=== PATIENT | female | born 1985 | race Caucasian/White ===

== ENCOUNTER 2020-12-22 07:03 | Emergency (ER) | payer BC ==
[~2020-12-22] VITALS: Ht 157.5 cm; Wt 62.6 kg
[2020-12-22 07:15] VITALS: BP 118/67
--- NOTE | 2020-12-22 07:18 | NUR ---
Dr. Winter is evaluating patient in triage room.
--- NOTE | 2020-12-22 07:23 | NUR ---
Patient to lobby for next available bed.
--- NOTE | 2020-12-22 07:23 | NUR ---
Patient to restroom to urine sample.
[2020-12-22] MEDS ORDERED: KETOROLAC 60 MG/2 ML VIAL IM ONE (07:25)
[2020-12-22 07:44] LABS: APPEARANCE,URINE CLEAR (CLEAR); BILIRUBIN,URINE NEGATIVE (NEGATIVE); BLOOD, URINE TRACE-I (NEGATIVE); COLOR,URINE YELLOW (YELLOW); LEUKOCYTE ESTERASE ,URINE NEGATIVE (NEGATIVE); NITRITE, URINE NEGATIVE (NEGATIVE); UGLUCOSE NEGATIVE (NEGATIVE)
--- NOTE | 2020-12-22 07:45 | NUR ---
BRODY walked to lab and handed to CPT. Pablo
[2020-12-22 07:55] LABS: RBC,URINE 0-5 /HPF (0-5); WBC,URINE 0-5 /HPF (0-5)
--- NOTE | 2020-12-22 08:00 | NUR ---
Blood sample collected, walked to lab and placed at counter. Lab staff made aware.
[2020-12-22 08:16] LABS: BASOPHILS % (AUTO) 0.2 % (0.0-2.0); EOSINOPHILS # (AUTO) 0.1 K/uL (0-0.4); EOSINOPHILS % (AUTO) 1.2 % (0.0-4.0); HEMATOCRIT 38.5 % (36-48); HEMOGLOBIN 12.7 g/dL (12.0-16.0); LYMPHOCYTES # (AUTO) 1.9 K/uL (2.5-16.5); LYMPHOCYTES % (AUTO) 23.1 % (20.5-51.1); MEAN CORPUSCULAR HEMOGLOBIN 29 pg (27-31); MEAN CORPUSCULAR HGB CONC 33 g/dL (33-37); MEAN CORPUSCULAR VOLUME 88.3 fL (80-94); MONOCYTES # (AUTO) 0.8 K/uL (0.8-1.0); MONOCYTES % (AUTO) 9.2 % (1.7-9.3); NEUTROPHILS # (AUTO) 5.6 K/uL (1.8-7.7); NEUTROPHILS % (AUTO) 66.3 % (42.2-75.2); PLATELET COUNT (AUTO) 311 K/uL (140-450); RED BLOOD CELL COUNT(AUTO) 4.36 MIL/uL (4.20-5.40); WHITE BLOOD COUNT (AUTO) 8.4 K/uL (4.8-10.8)
[2020-12-22 08:28] LABS: ANION GAP 9.8 (8-16); CARBON DIOXIDE 27.4 mmol/L (21-32); CREATININE 0.6 mg/dL (0.6-1.3); POTASSIUM 4.2 mmol/L (3.5-5.1); TOTAL BILIRUBIN 0.3 mg/dL (0.0-1.0)
--- NOTE | 2020-12-22 09:00 | NUR ---
Patient discharged with v/s stable. Written and verbal after care instructions given and explained. Patient verbalized understanding. Ambulatory with steady gait. All questions addressed prior to discharge. Advised to follow up with PMD.
== END 2020-12-22 09:00 | disposition home or self-care (01) ==
LOC: MED 07:03
DX: R10.9 Unspecified abdominal pain (principal)
CPT/HCPCS: 36415; 80053; 81001; 81025; 83690; 85025; 96372; 99283; J1885

== ENCOUNTER 2020-12-24 10:12 | Emergency (ER) | payer BC ==
[~2020-12-24] VITALS: Ht 157.5 cm; Wt 61.7 kg
[2020-12-24 10:16] VITALS: BP 127/80
--- NOTE | 2020-12-24 10:20 | NUR ---
PT TO LOBBY.
--- NOTE | 2020-12-24 10:20 | NUR ---
4Y1M OLD MALE BIB MOTHER C/O CONGESTION, PRODUCTIVE COUGH WITH GREEN PHLEGM [id number]. PT MOTHER STATES PT WAS SENT HOME FROM SCHOOL DUE TO "LABORED BREATHING". PT MOTHER STATES SHE TOOK PT TO PATROLLER AND PRESCRIBED CLARITIN TOLD SEASONAL ALLERGIES BUT SYMTOMS HAE NOT RESOLVED. SPO2 CUURENTLY 99% ON RA HR 122. DENIES FEVER/CHILLS, DENIES N/V. FLACC 0. DENIES PMH NKDA
--- NOTE | 2020-12-24 10:43 | NUR ---
LAB DRAWN AT [facility], GAVE TO TOP WADDY.
--- NOTE | 2020-12-24 10:48 | NUR ---
PT TAKEN TO US VIA W/C.
[2020-12-24 10:54] LABS: BASOPHILS % (AUTO) 0.3 % (0.0-2.0); EOSINOPHILS # (AUTO) 0.1 K/uL (0-0.4); EOSINOPHILS % (AUTO) 1.5 % (0.0-4.0); HEMOGLOBIN 13.5 g/dL (12.0-16.0); LYMPHOCYTES # (AUTO) 2.2 K/uL (2.5-16.5); LYMPHOCYTES % (AUTO) 25.1 % (20.5-51.1); MEAN CORPUSCULAR HEMOGLOBIN 29 pg (27-31); MEAN CORPUSCULAR HGB CONC 33 g/dL (33-37); MONOCYTES # (AUTO) 0.7 K/uL (0.8-1.0); MONOCYTES % (AUTO) 8.4 % (1.7-9.3); NEUTROPHILS # (AUTO) 5.7 K/uL (1.8-7.7); NEUTROPHILS % (AUTO) 64.7 % (42.2-75.2); PLATELET COUNT (AUTO) 171 K/uL (140-450); RED BLOOD CELL COUNT(AUTO) 4.61 MIL/uL (4.20-5.40); RED CELL DISTRIBUTION WIDTH 14.3 % (11.6-13.7); WHITE BLOOD COUNT (AUTO) 8.8 K/uL (4.8-10.8)
[2020-12-24 11:11] LABS: ALBUMIN 3.8 g/dL (3.4-5.0); ANION GAP 14.2 (8-16); CARBON DIOXIDE 24.4 mmol/L (21-32); CREATININE 0.6 mg/dL (0.6-1.3); POTASSIUM 4.6 mmol/L (3.5-5.1); TOTAL BILIRUBIN 0.4 mg/dL (0.0-1.0)
--- NOTE | 2020-12-24 11:11 | NUR ---
PT TAKEN TO LOBBY VIA W/C.
[2020-12-24] MEDS ORDERED: DICYCLOMINE HCL LIQUID 10 MG/5 ML UDC ONE (14:38)
[2020-12-24] MEDS ORDERED: ALUMINUM HYD/MAG/SIMETHICONE 30 ML UDC ONE (14:38)
[2020-12-24] MEDS: DICYCLOMINE HCL LIQUID 20 MG, ALUMINUM HYD/MAG/SIMETHICONE 30 ML, LIDOCAINE VISCOUS 2% ... PO ONE ×3 (14:42)
[2020-12-24] MEDS ORDERED: OMEP20TC10 PO (14:55)
[2020-12-24] MEDS ORDERED: ONDA-24 PO (14:55)
--- NOTE | 2020-12-24 15:25 | NUR ---
Patient discharged with v/s stable. Written and verbal after care instructions given and explained. Patient alert, oriented and verbalized understanding of instructions. Ambulatory with steady gait. All questions addressed prior to discharge. ID band removed. Patient advised to follow up with PMD. Rx of Omeprazole, Ondansetron given. Patient educated on indication of medication including possible reaction and side effects. Opportunity to ask questions provided and answered.
== END 2020-12-24 15:25 | disposition home or self-care (01) ==
LOC: MED 10:12
DX: R10.13 Epigastric pain (principal); M79.10 Myalgia, unspecified site; Z79.899 Other long term (current) drug therapy
CPT/HCPCS: 36415; 76705; 80053; 81002; 81025; 83690; 84703; 85025; 93005; 99285